=== PATIENT | female | born 1945 | race Caucasian/White ===

== ENCOUNTER → 2022-08-01 15:02 | Outpatient (BNVA) | payer MEDICARE, BC, SELFPAY | PROVIDERS: PCP Internal Medicine; Visit Provider Nurse Practitioner Family | DX: R06.09 Other forms of dyspnea (principal); E66.01 Morbid (severe) obesity due to excess calories; Z68.43 Body mass index [BMI] 50.0-59.9, adult | CPT/HCPCS: 94618; 99202 ==

== ENCOUNTER 2022-08-13 10:47 | Outpatient (REF) | payer MEDICARE, BC, SELFPAY ==
--- NOTE | 2022-08-13 11:54 | PFT_ITS ---
Forced vital capacity 89%. FEV1 97%. FEV1/FVC ratio is 82. OUD58-47 is 130% and MVV 104%. Post bronchodilator therapy, there is no significant change. Total lung capacity 89%. Residual volume 76%. Diffusion capacity 86%. CONCLUSION: Normal pulmonary function test and there is no evidence of obstructive or restrictive pulmonary disorder. MD JYOTI Stevens/AIXA / [id number]
== END 2022-08-13 10:48 | disposition home or self-care (01) ==
LOC: HO.RESP 10:47
PROVIDERS: PCP Internal Medicine; Visit Provider Nurse Practitioner Family
DX: R06.09 Other forms of dyspnea (principal)
CPT/HCPCS: 94060; 94727; 94729

== ENCOUNTER → 2022-10-14 13:53 | Outpatient (REF) | payer MEDICARE, BC, SELFPAY ==
--- NOTE | 2022-10-14 13:56 | CA_ITS ---
Transthoracic Echocardiogram Patient (Last, First, Middle): Maya Mathur, Gender: Female Date of : 1945 Age: 77 Procedure Date: 10/14/2022 Procedure Type: Transthoracic Echocardiogram Location: OP Height: 162.56 cm Weight: 140.62 kg BSA: 2.36 m2 Heart Rate: bpm BP: 136 / 84 mmHg Machine Coremaker: BURTON Referring MD: Doris Joyce RESIDENT ATHLETIC TRAINER [employer] Group Director: Lucas Kramer MD Symptoms: R06.09 - Other forms of dyspnea Study Quality: Adequate ECG Rhythm: Sinus Conclusions: - 1. Normal LV ejection fraction of 60 65% with moderate left ventricular hypertrophy 2. At least mildly dilated left atrium 3. Mild aortic stenosis 4. Mildly dilated ascending aorta at 3.9 cm 5. Normal RV systolic pressure 6. No pericardial effusion Findings Left Ventricle Normal left ventricular size and systolic function. There is moderately increased left ventricular wall thickness. The visually estimated ejection fraction is between 60-65%. Spectral Doppler is indicative of a normal filling pattern. Right Ventricle Normal right ventricular cavity size and systolic function. Atria The left atrium is mildly dilated. Interatrial shunt cannot be excluded. The right atrium is normal in size. Aortic Valve There is mild calcification of the aortic valve. There is mild aortic valve stenosis. The peak aortic gradient is 22 mmHg.The mean gradient is 12 mmHg. The aortic valve area is 1.68 cm2. There is no aortic valve regurgitation. Mitral Valve Normal mitral valve structure and function. There is trace mitral valve regurgitation. There is no mitral valve stenosis. Pulmonic Valve The pulmonic valve was not well visualized. Tricuspid Valve Normal tricuspid valve structure. There is mild tricuspid valve regurgitation. Normal right atrial pressure. There is no evidence of pulmonary hypertension. Great Vessels The pulmonary artery was not well visualized. There is mild dilatation of the ascending aorta measuring 3.90 cm. Venous The inferior vena cava is normal in size and collapses greater than 50% with inspiration. Pericardium/Pleural There is no evidence of pericardial effusion. Prior Study Comparison No prior study available for comparison. Measurements 2D Linear Measurements IVSd: 1.55 0.6-0.9/0.6-1.0 cm LVIDd: 4.47 3.9-5.3/4.2-5.9 cm LVIDd Index: 1.89 2.4-3.2/2.2-3.1 cm/m2 LVIDs: 2.60 2.0-3.6 cm LVPWd: 1.53 0.7-1.1 cm Ao Root: 3.20 2.1-3.5 cm LA Diam: 5.00 2.7-3.8/3.0-4.0 cm LAIDs Index: 2.12 1.5-2.3 cm/m2 LV Mass: 354.70 67-162/88-224 g LV Mass Index: 150.30 43-95/49-115 g/m2 LVOT Diam: 1.90 3.0+(-)1.3 cm Mitral Valve MV Pk E: 0.95 MV PK A: 0.82 MV Decel Time: 193.00 E/A: 1.20 E'Lateral: 14.60 E'Medial: 9.36 E/E' Med: 10.10 E/E' Lat: 6.50 PHT: 56.00 MVA PHT: 3.93 Decel Ritchie: 4.91 Aortic Valve AoV Pk Santiago: 2.32 AoV Mn Santiago: 1.60 AoV VTI: 0.58 AoV Pk Grad: 22.00 Aov Mn Grad: 12.00 JESUS Cont.VTI: 1.68 LVOT LVOT Pk [place]: 1.39 LVOT Mn [place]: 0.89 LVOT VTI: 0.35 LVOT Pk Grad: 8.00 LVOT Mn Grad: 4.00 LVOT Diam: 1.90 LVOT Area: 2.84 Diastolic Function MV Pk E: 0.95 MV Pk A: 0.82 E/A: 1.20 E'Medial: 9.36 E/E' Med: 10.10 E' Laterial: 14.60 E/E' Lat: 6.50 Right Ventricle TAPSE (mm): 29.00 Tricuspid Valve TR Pk [place]: 2.75 TR Pk Grad: 30.00 RA Press: 3.00 RVSP: 33.00 Great Vessels Aorta Ao Root-2D: 3.20 2.0-3.7 cm Ao Asc: 3.90 2.1-3.4 cm Pulmonary Valve PV Pk [place]: 1.20 Peak PV Grad: 6.00 Updated in Other Vendor System with Status of Final Lucas Kramer MD electronically signed on 10/15/2022 2:05:58 PM with status of Final
== END ==
LOC: HO.CARD 13:53
PROVIDERS: PCP Internal Medicine; Visit Provider Nurse Practitioner Family
DX: R06.09 Other forms of dyspnea (principal)
CPT/HCPCS: 93306

== ENCOUNTER → 2022-10-14 13:56 | Outpatient (BNV) | payer MEDICARE, OTHER, SELFPAY | PROVIDERS: PCP Internal Medicine; Visit Provider Internal Medicine Cardiovascular Disease | DX: I35.0 Nonrheumatic aortic (valve) stenosis (principal) | CPT/HCPCS: 93306 ==

== ENCOUNTER 2022-10-21 10:25 | Outpatient (AMB) | payer MEDICARE, OTHER, SELFPAY ==
--- NOTE | 2022-10-21 10:28 | A.OFFVIS_ITS ---
Intake Vital Signs 10/21/22 10:31 Height 5 ft 3.5 in Weight 318 lb 9.087 oz BMI 55.5 BP 114/68 Blood Pressure Location Lt radial Position Sitting Pulse 76 Pulse Source Pulse Oximeter Pulse Oximetry (%) 94 Oxygen Delivery Method Room Air Intake Visit Reasons: Shortness of breath Anthropology Professor Required: No Central Supply Manager: Central Supply Manager offered & declined Accompanied by: Self / Same As Patient Allergies No Known Allergies Allergy (Verified 10/21/22 10:32) Medication List - Last Reconciled 10/21/22 by Mesha Will LPN amlodipine 2.5 mg PO DAILY cholecalciferol (vitamin D3) 50 mcg PO DAILY fluticasone propionate 110 mcg/actuation (Flovent HFA) 2 puffs inhalation BID levothyroxine (Synthroid) 200 mcg PO DAILY levothyroxine (Synthroid) 300 mcg PO ONCE mecobalamin (vitamin B12) 1,000 mcg PO DAILY omeprazole 20 mg PO DAILY telmisartan-hydrochlorothiazid 80-25 mg 1 tab PO DAILY HPI Shortness of breath HPI Details Maya is a very pleasant 77 year old female who presents for a pulmonary evaluation. Her past medical history is significant for thyroid cancer s/p thyroidectomy (5 years ago) and endometrial cancer s/p total hysterectomy ( 2 years ago). She did not require any chemotherapy or radiation. She continues to report dyspnea on exertion. Since the last visit, she has been using Flovent with resolution of intermittent cough otherwise no significant improvements. Today she presents to review results of PFT and echo. She was also sent for chest CT but was not performed yet. Will look into this. [facility] Social History Patient Tobacco Use Status: Never used Tobacco Review of Systems Const Denies chills, Denies excessive sweating, Denies fever(s), Denies headache(s) and Denies night sweats Eyes Denies dry eyes, Denies irritation and Denies itchy eyes ENT Reports Normal hearing present, Denies headache(s), Denies nasal congestion, Denies nasal discharge, Denies post nasal drip and Denies sore throat Card Denies chest pain, Denies chest pain at rest, Denies chest pain with activity, Reports leg edema, Reports dyspnea, Reports dyspnea on exertion, Denies orthopnea and Denies paroxysmal nocturnal dyspnea Resp Denies chest congestion, Reports cough (intermittent dry cough), Denies hemoptysis, Denies excessive phlegm production, Denies pain on inspiration, Denies pain with cough, Reports dyspnea, Reports dyspnea on exertion and Denies stridor Musc Denies myalgias Skin/Breast Denies rash Neuro Reports Normal hearing present, Denies headache(s) and Denies seizure-like activity Endo Denies excessive sweating Murtaza/Lymph Denies lymphadenopathy Aller/Immun Denies itchy eyes and Denies seasonal rhinorrhea Physical Exam Vital Signs: Last Vital Signs Pulse 76 10/21/22 10:31 BP 114/68 10/21/22 10:31 Pulse Ox 94 10/21/22 10:31 Oxygen Delivery Method Room Air 10/21/22 10:31 BMI result Body Mass Index 55.5 Const General: cooperative, healthy appearing, comfortable, no acute distress, well developed and alert Nutritional Appearance: obese Orientation/consciousness: patient oriented x3 Limitations: no limitations HEENT Head: Yes normal to inspection, Yes normocephalic and Yes atraumatic Ears: hearing grossly normal bilaterally and external ears normal Eyes General: appearance normal, both eyes and all related structures Eyelids: Yes eyelids normal Sclerae: sclerae normal EOM: EOMs intact bilaterally Neck Neck: Yes normal visual inspection and Yes no lymphadenopathy Chest Chest palpation & inspection: normal inspection of the chest Resp Effort & Inspection: normal respiratory effort, able to speak in complete sentences, no audible wheezes, no cough, no stridor, not tachypneic, no tripod positioning and no use of accessory muscles Auscultation: clear to auscultation bilaterally Cardio Rate: regular rate Rhythm: regular rhythm Skin Other: warm, dry General skin exam: no rashes or lesions noted Neuro General: patient oriented x3 Cranial nerves: Yes Normal hearing present Cognition (Neuro): normal cognition Gait exam (Neuro): Normal gait present Psych Appearance: grossly normal and well kempt Speech and movement: Normal speech and movement present and Clear speech present Affect: normal affect Attitude: cooperative Thought process: Normal thought process present Thought content: Normal thought content present Insight: Good insight present (Psych) Judgement: Good judgement present (Psych) Results Reviewed Results Reviewed: [address] [address] Cardiology Report Signed Patient: Maya Mathur MR#: [id number] : 1945 Acct:[id number] Age/Sex: 77 / F ADM Date: 10/14/22 Loc: [facility] Attending Dr: Doris Joyce NP Ordering Physician: Doris Joyce NP Date of Service: 10/14/22 Procedure(s): CA echo transthoracic complete Accession Number(s): cc: Doris Joyce NP~ ? Transthoracic Echocardiogram Patient (Last, First, Middle): Maya Mathur, Gender:? Female Patient ID:? ? ? [id number] Date of : ? 1945 Age: ? 77 Procedure Date:? 10/14/2022 Procedure Type:? Transthoracic Echocardiogram Location:? OP Height:? 162.56 cm? Weight: ? 140.62 kg BSA: ? 2.36 m2? Heart Rate:? ? ? bpm BP:? 136 / 84 mmHg Parachute Rigger: ? ? VH Referring MD:? ? Doris Joyce NP Timber Management Professor:? ? Lucas Kramer MD Symptoms:? R06.09 - Other forms of dyspnea Study Quality: ? Adequate ECG Rhythm:? ? ? Sinus ?? ? Conclusions: - 1. Normal LV ejection fraction of 60 65% with moderate left? ? ventricular hypertrophy? 2. At least mildly dilated left atrium ? 3. Mild aortic stenosis? 4. Mildly dilated ascending aorta at 3.9 cm? 5. Normal RV systolic pressure ? 6. No pericardial effusion ? Findings Left Ventricle Normal left ventricular size and systolic function. There is moderately increased left ventricular wall thickness.? The visually estimated ejection fraction is between 60-65%.? Spectral Doppler is indicative of a normal filling pattern. Right Ventricle Normal right ventricular cavity size and systolic function. Atria The left atrium is mildly dilated.? Interatrial shunt cannot be excluded. The right atrium is normal in size. Aortic Valve There is mild calcification of the aortic valve.? There is mild aortic valve stenosis.? The peak aortic gradient is 22 mmHg.The mean gradient is 12 mmHg. The aortic valve area is 1.68 cm2.? There is no aortic valve regurgitation. Mitral Valve Normal mitral valve structure and function.? There is trace mitral valve regurgitation.? There is no mitral valve stenosis. Pulmonic Valve The pulmonic valve was not well visualized. Tricuspid Valve Normal tricuspid valve structure.? There is mild tricuspid valve regurgitation.? Normal right atrial pressure.? There is no evidence of pulmonary hypertension. Great Vessels The pulmonary artery was not well visualized.? There is mild dilatation of the ascending aorta measuring 3.90 cm. Venous The inferior vena cava is normal in size and collapses greater than 50% with inspiration. Pericardium/Pleural There is no evidence of pericardial effusion. Prior Study Comparison No prior study available for comparison. ? Measurements 2D Linear Measurements IVSd: ? 1.55? 0.6-0.9/0.6-1.0 cm LVIDd:? 4.47? 3.9-5.3/4.2-5.9 cm LVIDd Index:? 1.89? 2.4-3.2/2.2-3.1 cm/m2 LVIDs:? 2.60? 2.0-3.6 cm LVPWd:? 1.53? 0.7-1.1 cm Ao Root:? 3.20? 2.1-3.5 cm LA Diam:? 5.00? 2.7-3.8/3.0-4.0 cm LAIDs Index:? 2.12? 1.5-2.3 cm/m2 LV Mass:? 354.70? 67-162/88-224 g LV Mass Index:? ? ? 150.30? 43-95/49-115 g/m2 LVOT Diam:? 1.90 ? 3.0+(-)1.3 cm ?? Mitral Valve MV Pk E:? 0.95 MV PK A:? 0.82 MV Decel Time:? ? ? 193.00 E/A:? 1.20 E'Lateral:? 14.60 E'Medial: ? 9.36 E/E' Med: ? 10.10 E/E' Lat: ? 6.50 PHT:? 56.00 MVA PHT:? 3.93 Decel [place]:? 4.91 ?? Aortic Valve AoV Pk [place]: ? 2.32 AoV Mn [place]: ? 1.60 AoV VTI:? 0.58 AoV Pk Grad:? 22.00 Aov Mn Grad:? 12.00 JESUS Cont.VTI: ? ? ? 1.68 ?LVOT LVOT Pk Santiago:? 1.39 LVOT Mn Santiago:? 0.89 LVOT VTI: ? 0.35 LVOT Pk Grad: ? ? ? 8.00 LVOT Mn Grad: ? ? ? 4.00 LVOT Diam:? 1.90 LVOT Area:? 2.84 ? Diastolic Function MV Pk E:? 0.95 MV Pk A:? 0.82 E/A:? 1.20 E'Medial: ? 9.36 E/E' Med: ? 10.10 E' Laterial:? 14.60 E/E' Lat: ? 6.50 ? Right Ventricle TAPSE (mm): ? 29.00 ? Tricuspid Valve TR Pk Santiago:? 2.75 TR Pk Grad: ? 30.00 RA Press: ? 3.00 RVSP: ? 33.00 ?? Great Vessels Aorta Ao Root-2D: ? 3.20? 2.0-3.7 cm Ao Asc: ? 3.90? 2.1-3.4 cm ? Pulmonary Valve PV Pk Santiago:? 1.20 Peak PV Grad: ? ? ? 6.00 ? Updated in Other Vendor System with Status of Final Lucas Kramer MD? electronically signed on 10/15/2022 2:05:58 PM with status of Final Assessment & Plan Assessment & Plan (1) Dyspnea on exertion: Code(s): R06.09 - Other forms of dyspnea (2) Morbid obesity with BMI of 50.0-59.9, adult: Code(s): E66.01 - Morbid (severe) obesity due to excess calories; Z68.43 - Body mass index [BMI] 50.0-59.9, adult Plan Reviewed PFT with Maya which did not reveal an obstructive defect and no significant improvements with bronchodilators. There was decreased expiratory reserve volume which suggests extrathoracic restriction, likely secondary to abdominal obesity. Full report above. Patient did report improvements in cough with Flovent and would like to maintain this regimen. Reviewed echocardiagram which revealed mild diastolic dysfunction and patient may have underlying c ardiac etiologies contributing to symptoms. Will send for cardiac evaluation. Patient is requesting [facility] Cardiology. Chest CT was ordered at the last visit and it appears the patient was called on 3 separate occasions to schedule but did not answer. Will notify patient she will need to call to schedule her chest CT. All questions were answered and patient is in agreement of plan. Will follow up to review chest CT results. Orders: Referrals Cardiology Referral I51.7 - Cardiomegaly, I77.819 - Aortic ectasia, unspecified site Coding Level of Care Code Est Pt Level 4 (73051) Diagnoses Dyspnea on exertion R06.09 Morbid obesity with BMI of 50.0-59.9, adult E66.01; Z68.43
[2022-10-21 10:31] VITALS: BP 114/68; PULSE 76; O2SAT 94; BMI 55.5
== END 2022-10-21 10:51 | disposition home or self-care (01) ==
PROVIDERS: PCP Internal Medicine; Visit Provider Nurse Practitioner Family
DX: R06.09 Other forms of dyspnea (principal); E66.01 Morbid (severe) obesity due to excess calories; Z68.43 Body mass index [BMI] 50.0-59.9, adult
CPT/HCPCS: 99214

== ENCOUNTER → 2022-10-21 10:25 | Outpatient (BNVA) | payer MEDICARE, BC, SELFPAY | PROVIDERS: PCP Internal Medicine; Visit Provider Nurse Practitioner Family | DX: R06.09 Other forms of dyspnea (principal); E66.01 Morbid (severe) obesity due to excess calories; Z68.43 Body mass index [BMI] 50.0-59.9, adult | CPT/HCPCS: 99212 ==

== ENCOUNTER 2022-11-11 08:08 | Outpatient (REF) | payer MEDICARE, BC, SELFPAY ==
--- NOTE | ~2022-11-11 | CT_ITS ---
EXAMINATION: CT CHEST WITHOUT CONTRAST CLINICAL INFORMATION: Other forms of dyspnea. COMPARISON: None available. TECHNIQUE: Multidetector volumetric CT imaging of the chest was done. Axial MIP volume rendering provided. Sagittal and coronal reformatted images were obtained. This CT examination was performed using dose optimization techniques as appropriate, variously including the following: *Automated exposure control *Adjustment of mA and/or kV according to patient size (this includes techniques or standardized protocols for targeted exams where dose is matched to indication/reason for exam; i.e. extremities or head) *Use of iterative reconstruction technique DLP: 271 mGy-cm FINDINGS: LUNGS: Scarring or atelectasis is present in the right upper lobe. There is a 7 mm medially placed lung nodule in the right middle lobe (5:303). No other lung nodules are seen. MEDIASTINUM: No mediastinal or hilar lymphadenopathy. Surgical clips are present in the thyroid bed. Some calcifications are seen in the aortic leaflets. CORONARY ARTERY CALCIFICATION: None visualized on this study. PLEURA: There is no pleural effusion. No pleural mass or thickening. AXILLA: No lymphadenopathy. UPPER ABDOMEN: Two large gallstones are seen in the gallbladder which appears otherwise unremarkable. Adrenal glands appear normal. OSSEOUS STRUCTURES: Degenerative changes are seen in the spine. No bony destructive lesions. CT/CT chest wo IV con IMPRESSION: 1. A 7 mm right middle lobe lung nodule. 2. Cholelithiasis. 2017 Fleischner Society Recommendations for Lung Nodule(s): Follow up based on size (average of long- and short-axis diameters). Use most suspicious nodule for followup. Single Solid lung nodule 6-8 mm: In a low-risk patient, recommend a non-contrast Chest CT at 6-12 months, then consider an additional non-contrast Chest CT at 18-24 months. In a high-risk patient, recommend a non-contrast Chest CT at 6-12 months, then another non-contrast Chest CT at 18-24 months. These guidelines do not apply to patients younger than 35 years, immunocompromised patients, and patients with cancer. F/u in patients with significant comorbidities as clinically warranted. For lung cancer screening, adhere to Lung-RADS guidelines. Reference: Radiology. 2017 Aug; 284(1):228-243
== END 2022-11-11 08:09 | disposition home or self-care (01) ==
LOC: HO.CT 08:08
PROVIDERS: PCP Internal Medicine; Visit Provider Nurse Practitioner Family
DX: R06.09 Other forms of dyspnea (principal); Z85.9 Personal history of malignant neoplasm, unspecified
CPT/HCPCS: 71250

== ENCOUNTER 2022-11-14 | Outpatient (REF) | payer MEDICARE, BC, OTHER, SELFPAY | END 2022-11-14 00:01 | disposition home or self-care (01) | LOC: CF | PROVIDERS: Visit Provider Nurse Practitioner Family | DX: R91.1 Solitary pulmonary nodule (principal); R06.09 Other forms of dyspnea; E66.01 Morbid (severe) obesity due to excess calories; Z68.43 Body mass index [BMI] 50.0-59.9, adult | CPT/HCPCS: 99212 ==

== ENCOUNTER 2022-11-14 10:44 | Outpatient (AMB) | payer MEDICARE, OTHER, SELFPAY ==
[2022-11-14 10:47] VITALS: BP 118/78; PULSE 78; O2SAT 98; BMI 55.4
--- NOTE | 2022-11-14 10:47 | A.OFFVIS_ITS ---
Intake Vital Signs 11/14/22 10:47 Height 5 ft 3.5 in Weight 318 lb BMI 55.4 BP 118/78 Blood Pressure Location Rt brachial Position Sitting Pulse 78 Pulse Source Pulse Oximeter Pulse Oximetry (%) 98 Oxygen Delivery Method Room Air Intake Visit Reasons: Shortness of breath Electrocardiographic Technician Required: No Patternmaker Sample: Patternmaker Sample offered & declined Accompanied by: Self / Same As Patient Allergies No Known Allergies Allergy (Verified 11/14/22 10:53) Medication List - Last Reconciled 11/14/22 by Mesha Will LPN amlodipine 2.5 mg PO DAILY cholecalciferol (vitamin D3) 50 mcg PO DAILY fluticasone propionate 110 mcg/actuation (Flovent HFA) 2 puffs inhalation BID levothyroxine (Synthroid) 200 mcg PO DAILY levothyroxine (Synthroid) 300 mcg PO ONCE mecobalamin (vitamin B12) 1,000 mcg PO DAILY omeprazole 20 mg PO DAILY telmisartan-hydrochlorothiazid 80-25 mg 1 tab PO DAILY HPI Shortness of breath HPI Details Maya is a very pleasant 77 year old female, never smoker with underlying history of dyspnea on exertion, thyroid cancer s/p thyroidectomy (5 years ago) and endometrial cancer s/p total hysterectomy ( 2 years ago). She did not require any chemotherapy or radiation. She continues to report dyspnea on exertion but overall improvement in cough since using Flovent.Today she presents to review results of chest CT. [facility] Social History (Updated 11/14/22 @ 10:55 by Mesha Will LPN) Patient Tobacco Use Status: Never used Tobacco Smoked in Last 30 Days: No Review of Systems Const Denies chills, Denies excessive sweating, Denies fever(s), Denies headache(s) and Denies night sweats Eyes Denies dry eyes, Denies irritation and Denies itchy eyes ENT Reports Normal hearing present, Denies headache(s), Denies nasal congestion, Denies nasal discharge, Denies post nasal drip and Denies sore throat Card Denies chest pain, Denies chest pain at rest, Denies chest pain with activity, Reports leg edema, Reports dyspnea, Reports dyspnea on exertion, Denies orthopnea and Denies paroxysmal nocturnal dyspnea Resp Denies chest congestion, Reports cough (intermittent dry cough), Denies hemoptysis, Denies excessive phlegm production, Denies pain on inspiration, Denies pain with cough, Reports dyspnea, Reports dyspnea on exertion and Denies stridor Musc Denies myalgias Skin/Breast Denies rash Neuro Reports Normal hearing present, Denies headache(s) and Denies seizure-like activity Endo Denies excessive sweating Murtaza/Lymph Denies lymphadenopathy Aller/Immun Denies itchy eyes and Denies seasonal rhinorrhea Physical Exam Vital Signs: Last Vital Signs Pulse 78 11/14/22 10:47 BP 118/78 11/14/22 10:47 Pulse Ox 98 11/14/22 10:47 Oxygen Delivery Method Room Air 11/14/22 10:47 BMI result Body Mass Index 55.4 Const General: cooperative, healthy appearing, comfortable, no acute distress, well developed and alert Nutritional Appearance: obese Orientation/consciousness: patient oriented x3 Limitations: no limitations HEENT Head: Yes normal to inspection, Yes normocephalic and Yes atraumatic Ears: hearing grossly normal bilaterally and external ears normal Eyes General: appearance normal, both eyes and all related structures Eyelids: Yes eyelids normal Sclerae: sclerae normal EOM: EOMs intact bilaterally Neck Neck: Yes normal visual inspection and Yes no lymphadenopathy Chest Chest palpation & inspection: normal inspection of the chest Resp Effort & Inspection: normal respiratory effort, able to speak in complete sentences, no audible wheezes, no cough, no stridor, not tachypneic, no tripod positioning and no use of accessory muscles Cardio Rate: regular rate Rhythm: regular rhythm Skin Other: warm, dry General skin exam: no rashes or lesions noted Neuro General: patient oriented x3 Cranial nerves: Yes Normal hearing present Cognition (Neuro): normal cognition Gait exam (Neuro): Normal gait present Psych Appearance: grossly normal and well kempt Speech and movement: Normal speech and movement present and Clear speech present Affect: normal affect Attitude: cooperative Thought process: Normal thought process present Thought content: Normal thought content present Insight: Good insight present (Psych) Judgement: Good judgement present (Psych) Results Reviewed Results Reviewed: [address] [address] [address] Scan Report Signed Patient: Maya Mathur MR#: [id number] : 1945 Acct:[id number] Age/Sex: 77 / F ADM Date: 11/11/22 Loc: HO.CT Attending Dr: Doris Joyce NP Ordering Physician: Doris Joyce NP Date of Service: 11/11/22 Procedure(s): CT chest wo IV con Accession Number(s): [id number] cc: Anahi Moctezuma DO; Doris Joyce NP~ EXAMINATION: CT CHEST WITHOUT CONTRAST CLINICAL INFORMATION: Other forms of dyspnea. COMPARISON: None available. TECHNIQUE: Multidetector volumetric CT imaging of the chest was done. Axial MIP volume rendering provided. Sagittal and coronal reformatted images were obtained. This CT examination was performed using dose optimization techniques as appropriate, variously including the following: *Automated exposure control *Adjustment of mA and/or kV according to patient size (this includes techniques or standardized protocols for targeted exams where dose is matched to indication/reason for exam; i.e. extremities or head) *Use of iterative reconstruction technique DLP: 271 mGy-cm FINDINGS: LUNGS: Scarring or atelectasis is present in the right upper lobe. There is a 7 mm medially placed lung nodule in the right middle lobe (5:303). No other lung nodules are seen. MEDIASTINUM: No mediastinal or hilar lymphadenopathy. Surgical clips are present in the thyroid bed. Some calcifications are seen in the aortic leaflets. CORONARY ARTERY CALCIFICATION: None visualized on this study. PLEURA: There is no pleural effusion. No pleural mass or thickening. AXILLA: No lymphadenopathy. UPPER ABDOMEN: Two large gallstones are seen in the gallbladder which appears otherwise unremarkable. Adrenal glands appear normal. OSSEOUS STRUCTURES: Degenerative changes are seen in the spine. No bony destructive lesions. CT/CT chest wo IV con IMPRESSION: 1. A 7 mm right middle lobe lung nodule. 2. Cholelithiasis. 2017 Fleischner Society Recommendations for Lung Nodule(s): Follow up based on size (average of long- and short-axis diameters). Use most suspicious nodule for followup. Single Solid lung nodule 6-8 mm: In a low-risk patient, recommend a non-contrast Chest CT at 6-12 months, then consider an additional non-contrast Chest CT at 18-24 months. In a high-risk patient, recommend a non-contrast Chest CT at 6-12 months, then another non-contrast Chest CT at 18-24 months. These guidelines do not apply to patients younger than 35 years, immunocompromised patients, and patients with cancer. F/u in patients with significant comorbidities as clinically warranted. For lung cancer screening, adhere to Lung-RADS guidelines. Reference: Radiology. 2017 Aug; 284(1):228-243 Assessment & Plan Assessment & Plan (1) Pulmonary nodule, right: Code(s): R91.1 - Solitary pulmonary nodule (2) Dyspnea on exertion: Code(s): R06.09 - Other forms of dyspnea (3) Morbid obesity with BMI of 50.0-59.9, adult: Code(s): E66.01 - Morbid (severe) obesity due to excess calories; Z68.43 - Body mass index [BMI] 50.0-59.9, adult Plan Reviewed chest CT with patient which revealed a 7 mm nodule of the RML. Given her history of thyroid and endometrial cancer she is high risk. Discussed PET but unfortunately the nodule is <8mm and will likely not be detected. Will discuss with Dr. Conley on next best course of action and call patient. All questions were answered and patient is in agreement of plan. Will follow up to review chest CT results. Coding Level of Care Code Est Pt Level 3 (55961) Diagnoses Pulmonary nodule, right R91.1 Dyspnea on exertion R06.09 Morbid obesity with BMI of 50.0-59.9, adult E66.01; Z68.43
== END 2022-11-14 14:14 | disposition home or self-care (01) ==
LOC: HO.HPSW 10:44
PROVIDERS: PCP Internal Medicine; Visit Provider Nurse Practitioner Family
DX: R91.1 Solitary pulmonary nodule (principal); R06.09 Other forms of dyspnea; E66.01 Morbid (severe) obesity due to excess calories; Z68.43 Body mass index [BMI] 50.0-59.9, adult
CPT/HCPCS: 99212; 99213

== ENCOUNTER 2023-03-03 15:09 | Outpatient (REF) | payer MEDICARE, SELFPAY | END 2023-03-03 15:10 | disposition home or self-care (01) | LOC: HO.CT 15:09 | PROVIDERS: PCP Internal Medicine; Visit Provider Thoracic Surgery (Cardiothoracic Vascular Surgery) | DX: R91.1 Solitary pulmonary nodule (principal) | CPT/HCPCS: 71250 ==

== ENCOUNTER 2023-04-10 13:52 | Outpatient (AMB) | payer MEDICARE, OTHER, SELFPAY ==
--- NOTE | 2023-04-10 13:44 | MHC.OFFVIS ---
Intake Vital Signs 04/10/23 13:55 Height 5 ft 3.5 in BP 128/72 Blood Pressure Location Rt brachial Position Sitting Pulse 73 Pulse Source Pulse Oximeter Pulse Oximetry (%) 97 Oxygen Delivery Method Room Air Intake Visit Reasons: pulmonary nodule: f/u on ct Wire Splicer Required: No Internet Merchant: Internet Merchant offered & declined Accompanied by: Self / Same As Patient Allergies No Known Allergies Allergy (Verified 04/10/23 13:59) Medication List - Last Reconciled 04/10/23 by Mesha Will LPN amlodipine 2.5 mg PO DAILY cholecalciferol (vitamin D3) 50 mcg PO DAILY levothyroxine (Synthroid) 200 mcg PO DAILY levothyroxine (Synthroid) 300 mcg PO ONCE mecobalamin (vitamin B12) 1,000 mcg PO DAILY omeprazole 20 mg PO DAILY telmisartan-hydrochlorothiazid 80-25 mg 1 tab PO DAILY HPI pulmonary nodule: f/u on ct HPI Details Maya is a very pleasant 77 year old female, never smoker with underlying history of dyspnea on exertion, thyroid cancer s/p thyroidectomy (5 years ago) and endometrial cancer s/p total hysterectomy (2 years ago). She did not require any chemotherapy or radiation. She continues to report dyspnea on exertion and felt no improvement with ICS. She denies cough, wheezing or chest tightness. Today she presents to review results of chest CT. She has been evaluated by thoracic surgeon and recently reviewed chest CT. She states that an order has been entered by thoracic for a 6 month follow up. Of note, she is currently undergoing cardiac evaluation and has a stress test scheduled 05/19/23. She denies chest pain. [facility] Social History (Updated 04/10/23 @ 14:01 by Mesha Will LPN) Patient Tobacco Use Status: Never used Tobacco Smoked in Last 30 Days: No Review of Systems Const Denies chills, Denies excessive sweating, Denies fever(s), Denies headache(s) and Denies night sweats Eyes Denies dry eyes, Denies irritation and Denies itchy eyes ENT Reports Normal hearing present, Denies headache(s), Denies nasal congestion, Denies nasal discharge, Denies post nasal drip and Denies sore throat Card Denies chest pain, Denies chest pain at rest, Denies chest pain with activity, Reports leg edema, Reports dyspnea, Reports dyspnea on exertion, Denies orthopnea and Denies paroxysmal nocturnal dyspnea Resp Denies chest congestion, Denies cough, Denies hemoptysis, Denies excessive phlegm production, Denies pain on inspiration, Denies pain with cough, Reports dyspnea, Reports dyspnea on exertion and Denies stridor Musc Denies myalgias Skin/Breast Denies rash Neuro Reports Normal hearing present, Denies headache(s) and Denies seizure-like activity Endo Denies excessive sweating Murtaza/Lymph Denies lymphadenopathy Aller/Immun Denies itchy eyes and Denies seasonal rhinorrhea Physical Exam Vital Signs: Last Vital Signs Pulse 73 04/10/23 13:55 BP 128/72 04/10/23 13:55 Pulse Ox 97 04/10/23 13:55 Oxygen Delivery Method Room Air 04/10/23 13:55 Const General: cooperative, healthy appearing, comfortable, no acute distress, well developed and alert Nutritional Appearance: obese Orientation/consciousness: patient oriented x3 Limitations: no limitations HEENT Head: Yes normal to inspection, Yes normocephalic and Yes atraumatic Ears: hearing grossly normal bilaterally and external ears normal Eyes General: appearance normal, both eyes and all related structures Eyelids: Yes eyelids normal Sclerae: sclerae normal EOM: EOMs intact bilaterally Neck Neck: Yes normal visual inspection and Yes no lymphadenopathy Chest Chest palpation & inspection: normal inspection of the chest Resp Effort & Inspection: normal respiratory effort, able to speak in complete sentences, no audible wheezes, no cough, no stridor, not tachypneic, no tripod positioning and no use of accessory muscles Cardio Rate: regular rate Rhythm: regular rhythm Skin Other: warm, dry General skin exam: no rashes or lesions noted Neuro General: patient oriented x3 Cranial nerves: Yes Normal hearing present Cognition (Neuro): normal cognition Gait exam (Neuro): Normal gait present Psych Appearance: grossly normal and well kempt Speech and movement: Normal speech and movement present and Clear speech present Affect: normal affect Attitude: cooperative Thought process: Normal thought process present Thought content: Normal thought content present Insight: Good insight present (Psych) Judgement: Good judgement present (Psych) Results Reviewed Results Reviewed: [address] [address] [address] Scan Report Signed Patient: Maya Mathur MR#: [id number] : 1945 Acct:[id number] Age/Sex: 77 / F ADM Date: 03/03/23 Loc: HO.CT Attending Dr: Felicity Matias MD Ordering Physician: FELICITY MATIAS MD Date of Service: 03/03/23 Procedure(s): CT chest wo IV con Accession Number(s): [id number] cc: FELICITY MATIAS MD; Anahi Moctezuma DO~ EXAMINATION: CT CHEST WITHOUT CONTRAST CLINICAL INFORMATION: Pulmonary nodule. COMPARISON: Chest CT dated 11/11/2022. TECHNIQUE: Multidetector volumetric CT imaging of the chest was done. Axial MIP volume rendering provided. Sagittal and coronal reformatted images were obtained. This CT examination was performed using dose optimization techniques as appropriate, variously including the following: *Automated exposure control *Adjustment of mA and/or kV according to patient size (this includes techniques or standardized protocols for targeted exams where dose is matched to indication/reason for exam; i.e. extremities or head) *Use of iterative reconstruction technique DLP: 266 mGy-cm FINDINGS: WEATHERIZATION ADMINISTRATOR: The trachea is in normal anatomic position. Heart size appears normal. The lungs are clear. No pleural effusion or pneumothorax. There are degenerative changes of the spine. LUNGS: There is a stable 3 mm nodule within the right lower lobe. This is best seen on image #29, series #4 and image #89, series #7. There is a stable 6.3 mm nodule within the medial aspect of the right middle lobe seen best on image #32, series #4 and image #67, series #7. There is no consolidative process within either lung. The trachea and central airways are patent. MEDIASTINUM: There are surgical clips within the thyroid bed. Heart size is normal. There is no pericardial effusion. There is mild calcific atherosclerotic disease of the aorta. No aortic aneurysm is seen. The main pulmonary artery appears mildly enlarged. No mediastinal or hilar adenopathy. CORONARY ARTERY CALCIFICATION: None visualized on this study. PLEURA: There is no pleural effusion. No pleural mass or thickening. AXILLA: No lymphadenopathy. UPPER ABDOMEN: There are 2, stable, large, peripherally calcified gallstones. The remainder of the visualized abdomen is within normal limits. OSSEOUS STRUCTURES: There are moderate degenerative changes throughout the spine. CT/CT chest wo IV con IMPRESSION: 1. There is a stable 3 mm pulmonary nodule within the right lower lobe and a stable 6.3 mm pulmonary nodule within the right middle lobe as described above. 2. Cholelithiasis. According to the UPDATED 2017 Fleischner Society recommendations, the advised follow-up imaging for multiple solid nodules, the largest measuring 6 mm or greater, is: LOW RISK PATIENT: CT at 3-6 months, then consider CT at 18-24 months. HIGH RISK PATIENT: CT at 3-6 months, then at 18-24 months. Assessment & Plan Assessment & Plan (1) Pulmonary nodule, right: Code(s): R91.1 - Solitary pulmonary nodule (2) Dyspnea on exertion: Code(s): R06.09 - Other forms of dyspnea (3) Morbid obesity with BMI of 50.0-59.9, adult: Code(s): E66.01 - Morbid (severe) obesity due to excess calories; Z68.43 - Body mass index [BMI] 50.0-59.9, adult Plan Reviewed chest CT with patient which revealed a stable nodule of RML. Will repeat CT in 6 months, thoracic surgery has entered order already. At this time, she will follow up PRN. All questions were answered and patient is in agreement of plan. Coding Level of Care Code Est Pt Level 4 (46297) Diagnoses Pulmonary nodule, right R91.1 Dyspnea on exertion R06.09 Morbid obesity with BMI of 50.0-59.9, adult E66.01; Z68.43
[2023-04-10 13:55] VITALS: BP 128/72; PULSE 73; O2SAT 97
== END 2023-04-10 14:15 | disposition home or self-care (01) ==
PROVIDERS: PCP Internal Medicine; Visit Provider Nurse Practitioner Family
DX: R91.1 Solitary pulmonary nodule (principal); R06.09 Other forms of dyspnea; E66.01 Morbid (severe) obesity due to excess calories; Z68.43 Body mass index [BMI] 50.0-59.9, adult
CPT/HCPCS: 99214

== ENCOUNTER → 2023-04-10 13:52 | Outpatient (BNVA) | payer MEDICARE, OTHER, SELFPAY | PROVIDERS: PCP Internal Medicine; Visit Provider Nurse Practitioner Family | DX: R91.1 Solitary pulmonary nodule (principal); R06.09 Other forms of dyspnea; E66.01 Morbid (severe) obesity due to excess calories; Z68.43 Body mass index [BMI] 50.0-59.9, adult | CPT/HCPCS: 99212 ==

== ENCOUNTER 2023-08-11 12:52 | Outpatient (REF) | payer MEDICARE, OTHER, SELFPAY ==
--- NOTE | ~2023-08-11 | CT_ITS ---
EXAMINATION: CT CHEST WITHOUT CONTRAST CLINICAL INFORMATION: Follow-up lung nodule COMPARISON: 08/02/2023 and 11/11/2022 TECHNIQUE: Multidetector volumetric CT imaging of the chest was done. Axial MIP volume rendering provided. Sagittal and coronal reformatted images were obtained. This CT examination was performed using dose optimization techniques as appropriate, variously including the following: *Automated exposure control *Adjustment of mA and/or kV according to patient size (this includes techniques or standardized protocols for targeted exams where dose is matched to indication/reason for exam; i.e. extremities or head) *Use of iterative reconstruction technique DLP: 411 mGy-cm FINDINGS: MIXING SUPERVISOR: Unremarkable LUNGS: Diminished limited due to motion. There is 0.5 cm nodule in the right middle lobe stable since previous examination. 0.3 cm nodule is stable in the right lower lobe atelectasis seen on image 61 series 10 MEDIASTINUM: Thyroid gland is surgically absent replaced by surgical denise. There is no mediastinal or hilar lymphadenopathy. The heart is not enlarged. CORONARY ARTERY CALCIFICATION: None visualized on this study. PLEURA: There is no pleural effusion. No pleural mass or thickening. AXILLA: No lymphadenopathy. UPPER ABDOMEN: There is cholelithiasis without cholecystitis. OSSEOUS STRUCTURES: There are degenerative spondylosis changes in the CT/CT chest wo IV con IMPRESSION: Stable small lung nodules. Fleischner guidelines were followed.
== END 2023-08-11 12:53 | disposition home or self-care (01) ==
LOC: HO.CT 12:52
PROVIDERS: PCP Internal Medicine; Visit Provider Thoracic Surgery (Cardiothoracic Vascular Surgery)
DX: R91.1 Solitary pulmonary nodule (principal)
CPT/HCPCS: 71250